=== PATIENT | male | born 1965 | race African-American/Black ===

== ENCOUNTER → 2018-12-31 | Outpatient (CLI) | payer OTHER | LOC: COL.RAD 06:44 | DX: N04.1 Nephrotic syndrome with focal and segmental glomerular lesions (principal); N17.8 Other acute kidney failure; R90.82 White matter disease, unspecified | CPT/HCPCS: G0365 ==

== ENCOUNTER 2021-06-26 13:30 | Inpatient (IN) | payer OTHER ==
[~2021-06-26] VITALS: Ht 185.4 cm; Wt 104.8 kg
[2021-06-26 13:45] VITALS: BP 170/94; PULSE 92; TEMP 98.5
[2021-06-26] MEDS ORDERED: NORVASC 10MG10 MG PO (14:07)
[2021-06-26] MEDS ORDERED: CYCLOSPORINE100 M2 PO (14:07)
[2021-06-26] MEDS ORDERED: ZESTRIL 10MG10 MG PO (14:08)
[2021-06-26] MEDS ORDERED: VELTASSA8.4 GM PO (14:09)
[2021-06-26] MEDS ORDERED: VIAGRA50 M1 PO (14:10)
--- NOTE | 2021-06-26 14:16 | NUR ---
ADMISSION INTAKE AND ASSESSMENT COMPLETED. PT ORIENTED TO ROOM, ALL QUESTIONS ANSWERS. UPDATED PT ON PLAN OF CARE. LEFT A VOICEMAIL WITH AIMEE TO NOTIFY HER THAT PT IS HERE. PT DENIES ANY NEEDS AT THIS TIME. WILL CONTINUE TO MONITOR.
[2021-06-26 14:49] LABS: BASO % 0.6 % (0.0-2.0); EOS # 0.3 K/mm3 (0.0-0.7); GRAN # 4.6 K/mm3 (1.4-6.5); GRAN % 71.5 % (42.2-75.2); LYMPH # 0.7 K/mm3 (1.2-3.4); LYMPH % 11.2 % (20.0-51.0); MEAN CELL VOLUME 81 fl (80.0-100.0); MEAN CORPUSCULAR HGB CONC 32 g/dl (33.0-37.0); MEAN PLATELET VOLUME 9.7 fl (7.4-10.4); MONO # 0.7 K/mm3 (0.1-0.6); MONO % 11.2 % (1.7-9.3); PLATELET COUNT 292 K/mm3 (130-400); REDCELL DISTRIBUTION WIDTH-CV 13.3 % (11.5-14.5)
[2021-06-26 14:50] LABS: HEMATOCRIT 27.4 % (42.0-52.0); HEMOGLOBIN 8.8 g/dl (13.5-18.0); MEAN CORPUSCULAR HEMOGLOBIN 26 pg (27-31)
[2021-06-26 15:01] LABS: ALBUMIN 3.1 gm/dL (3.5-5.0); BILIRUBIN,TOTAL 0.5 mg/dL (0.2-1.2); CALCIUM 6.4 mg/dL (8.4-10.2); CREATININE, serum 21.91 mg/dL (0.72-1.25); POTASSIUM 4.3 mmol/L (3.5-4.5); TOTAL PROTEIN 6.8 gm/dL (6.2-8.1)
[2021-06-26 16:05] VITALS: BP 151/79; PULSE 92; TEMP 98.1
[2021-06-26 17:11] LABS: MUCOUS Present (NOT PRESENT); PH 5 (5-8); SQUAMOUS EPITHELIAL 0-2 /hpf (0-10); URINE APPEARANCE Hazy (CLEAR/HAZY); URINE BACTERIA Rare /hpf (NONE SEEN); URINE BILIRUBIN Negative (NEGATIVE); URINE BLOOD 2+ (NEGATIVE); URINE COLOR Yellow (YELLOW); URINE GLUCOSE Negative (NEGATIVE); URINE KETONE Trace (NEGATIVE); URINE LEUKOCYTE ESTERASE Negative (NEGATIVE); URINE NITRATE Negative (NEGATIVE); URINE PROTEIN(semi-quant) 3+ (NEGATIVE); URINE RBC 0-2 /hpf (0-2); URINE UROBILINOGEN Negative (NEGATIVE)
[2021-06-26 17:22] LABS: COLLECTION METHOD CLEAN CATCH
[2021-06-26 19:07] LABS: PHOSPHOROUS 9.9 mg/dL (2.3-4.7); URIC ACID 13.7 mg/dL (3.5-7.2)
[2021-06-26 20:11] VITALS: BP 152/88; PULSE 95; TEMP 98.5
--- NOTE | 2021-06-26 23:08 | NUR ---
PATIENT ALERT AND ORIENTED. C/O MODERATE PAIN 10/30 BUT REFUSED TYLENOL WHEN OFFERED. OFFERED ICE AND THIS WAS ALSO REFUSED. R KNEE SWOLLEN, NO REDNESS NOTED. R FA FISTULA +BRUIT AND THRILL. RESTRICT BRACELET IN PLACE. HS MEDICATIONS GIVEN. DENIES ANY OTHER NEEDS.
[2021-06-26 23:49] VITALS: BP 137/89; PULSE 100; TEMP 98.5
[2021-06-27] VITALS (8 sets, daily range): BP systolic 94–171; BP diastolic 52–97; PULSE 95–100; TEMP 97.5–98.8
--- NOTE | 2021-06-27 07:30 | NUR ---
PT PLEASANT, REPORTS PAIN 7/10 IN R KNEE, KNEE EDEMETOUS BUT NOT RED, PT ASSESSMENT PERFORMED, MEDICATIONS GIVEN, TYLENOL GIVEN FOR PAIN, EDUCATED PT ON 1130 TIME FOR DIALYSIS AND TO ORDER AN EARLY LUNCH, PT AOX4, NO OTHER NEEDS
--- NOTE | 2021-06-27 09:01 | NUR ---
BP ELEVATED, PCT REASSESSED BP, NOW NOT WITHIN PARAMETERS TO GIVE HYDRALAZINE, [facility] NOTIFIED TO ADDRESS BP MEDICATIONS.
--- NOTE | 2021-06-27 11:29 | NUR ---
general warehouse worker met with patient to discuss discharge plan. Patient currently lives at home in [place]. He is independent with his ADL's and utilizes a cane prn to help with ambulation. Patient has no oxygen needs at home. PCP is Etta Vera APRN and he utilizes [facility] in for medications. Patient does not have a DPOA-HC established. Geovanni ([phone]) is the mother of his 4 children but they were never legally . His oldest child is a daughter named Johana ([phone]). Patient is planning on returning home once medically ready. Patient reports that he does have [facility] insurance through his employer. [facility] Aysha Sparrow notified and sent an email to team. Discharge plan: Home
--- NOTE | 2021-06-27 11:37 | NUR ---
MEDICATIONS GIVEN, LIDOCAINE CREAM APPLIED TO FISTULA SITE AND COVERED WITH TEGADERM PER ORDER, PT REPORTS PAIN IN R KNEE AT 6/10
--- NOTE | 2021-06-27 12:59 | NUR ---
first visit from the social security benefits interviewer. NO needs right now.
--- NOTE | 2021-06-27 13:00 | NUR ---
PT REPORTS THAT ABOUT 30 MIN PRIOR HE WAS GOING TO THE BATHROOM INDEPENDENTLY, HE REPORTS HIS LEG "LOCKED UP AND I STARTED SEEING BLACK". STARTED YELLING "HELP" TO ASSIST PT BACK TO BED. VITALS OBTAINED AND STABLE. PT DENIES DIZZINESS AT REST.
--- NOTE | 2021-06-27 13:33 | NUR ---
PT TAKEN TO DIALYSIS VIA WHEELCHAIR
--- NOTE | 2021-06-27 14:56 | NUR ---
ATTEMPTED CANNULATION @ [facility] & UNSUCCESSFUL FOR HD TX INITIATION TODAY. DR. SAWYER NOTIFIED & ORDERED NPO AFTER MIDNIGHT FOR DIALYSIS CATHETER PLACEMENT ON RIGHT SIDE OF CHEST TOMORROW MORNING.
[2021-06-27 15:02] LABS: BASO # 0.1 K/mm3 (0.0-0.2); BASO % 0.7 % (0.0-2.0); EOS # 0.5 K/mm3 (0.0-0.7); EOS % 6.9 % (0.0-4.0); GRAN # 4.8 K/mm3 (1.4-6.5); GRAN % 71.2 % (42.2-75.2); LYMPH # 0.7 K/mm3 (1.2-3.4); LYMPH % 10.2 % (20.0-51.0); MEAN CELL VOLUME 80 fl (80.0-100.0); MEAN CORPUSCULAR HGB CONC 33 g/dl (33.0-37.0); MEAN PLATELET VOLUME 10.3 fl (7.4-10.4); MONO # 0.7 K/mm3 (0.1-0.6); MONO % 10.6 % (1.7-9.3); PLATELET COUNT 314 K/mm3 (130-400); RED BLOOD COUNT 3.46 M/mm3 (4.20-5.60); REDCELL DISTRIBUTION WIDTH-CV 13.2 % (11.5-14.5)
[2021-06-27 15:05] LABS: ALBUMIN 2.9 gm/dL (3.5-5.0); CREATININE, serum 20.37 mg/dL (0.72-1.25); PHOSPHOROUS 9.3 mg/dL (2.3-4.7); POTASSIUM 3.7 mmol/L (3.5-4.5)
[2021-06-27 15:14] LABS: HEMATOCRIT 27.5 % (42.0-52.0); HEMOGLOBIN 9.1 g/dl (13.5-18.0); MEAN CORPUSCULAR HEMOGLOBIN 26 pg (27-31)
--- NOTE | 2021-06-27 15:20 | NUR ---
CRITICAL CO2 CALLED TO [facility], SHE ALSO STATED PT WOULD BE NPO MDN
[2021-06-27 15:26] LABS: INR 1.2 (0.8-3.0); PROTHROMBIN TIME 13.5 SECONDS (9.7-12.8)
[2021-06-27 17:16] LABS: HEPATITIS B SURFACE ANTIBODY <2.0 (()); HEPATITIS B SURFACE ANTIGEN Negative (Negative); HEPATITIS C VIRUS ANTIBODY Negative (Negative)
--- NOTE | 2021-06-27 17:41 | NUR ---
pt mitzi, aox4, will be npo mdn for tdc placement tomorrow, reports pain in r knee, no other needs
[2021-06-28] VITALS (14 sets, daily range): BP systolic 91–137; BP diastolic 50–87; PULSE 88–97; TEMP 97.3–98.6
--- NOTE | 2021-06-28 05:00 | NUR ---
ASSESSMENT COMPLETE FOR THIS SHIFT. PT RESTING IN BED TALKING TO HIS MOTHER ON THE PHONE. PT COMPLAINED OF RT KNEE PAIN THAT HE SAID TYLENOL DIDN'T RELIEVE. PHYSICIAN CALLED. PERCOCET ORDERED AND GIVEN TO PT FOR PAIN. PT STATED PERCOCET HELPED TO RELIEVED HIS PAIN. PT DENIED PALPITATIONS, N,V,D, SOB OR DIZZINESS. PT NPO AT MIDNIGHT. PT EXPRESSED NO OTHER NEEDS AT THIS TIME. CALL LIGHT WITHIN REACH.
[2021-06-28 06:28] LABS: BASO % 0.4 % (0.0-2.0); EOS # 0.4 K/mm3 (0.0-0.7); EOS % 9.1 % (0.0-4.0); GRAN # 2.8 K/mm3 (1.4-6.5); GRAN % 58.7 % (42.2-75.2); LYMPH # 0.8 K/mm3 (1.2-3.4); LYMPH % 17.5 % (20.0-51.0); MEAN CELL VOLUME 80 fl (80.0-100.0); MEAN CORPUSCULAR HGB CONC 33 g/dl (33.0-37.0); MEAN PLATELET VOLUME 9.8 fl (7.4-10.4); MONO # 0.7 K/mm3 (0.1-0.6); MONO % 13.9 % (1.7-9.3); PLATELET COUNT 292 K/mm3 (130-400); RED BLOOD COUNT 3.22 M/mm3 (4.20-5.60); REDCELL DISTRIBUTION WIDTH-CV 13.2 % (11.5-14.5)
[2021-06-28 06:35] LABS: HEMATOCRIT 25.6 % (42.0-52.0); HEMOGLOBIN 8.5 g/dl (13.5-18.0); MEAN CORPUSCULAR HEMOGLOBIN 26 pg (27-31)
[2021-06-28 06:42] LABS: ALBUMIN 2.6 gm/dL (3.5-5.0); CREATININE, serum 20.47 mg/dL (0.72-1.25); PHOSPHOROUS 10.2 mg/dL (2.3-4.7)
[2021-06-28 06:44] LABS: CALCIUM 5.7 mg/dL (8.4-10.2)
--- NOTE | 2021-06-28 08:30 | NUR ---
PT ALERT AND ORIENTED UPON ENTRY. REGULAR HR AND RHYTHM. CLEAR RESPIRATIONS. BRUIT HEARD AND THRILL PRESENT ON RIGHT AV FISTULA. EDEMA NOTED IN RIGHT KNEE. PT COMPLAINED OF 7/10 KNEE PAIN THAT WOULD SOON WORSEN WHEN HE GOT OOB. PRN PERCACET ADMINISTERED. PAIN REASSESSED 1 HOUR LATER AND PT RATED IT 3/10. NO FURTHER ACTIONS TAKEN. ADMINISTERED PT MEDICATIONS AND EDUCATED ON MEDICATION PURPOSES. PT REMAINS NPO UNTIL HEMODIALYSIS CATHETER PLACEMENT.REVIEWED PROCEDURE CONSENT WITH CLIENT AND WITNESSED PT SIGNATURE. NO CONCERNS AT THIS TIME.
--- NOTE | 2021-06-28 12:00 | NUR ---
PT TAKEN OFF UNIT FOR DIALYSIS CATHETER PLACEMENT AND DIALYSIS.
--- NOTE | 2021-06-28 12:03 | NUR ---
PATIENT ALERT AND ORIENTED AND VERBALIZES UNDERSTANDING PROCEDCURE. PATIENT HAS CHRONIC RIGHT KNEE PAIN-NOT NEW TO THIS ADMISSION. SEE MERGE FOR ALL VITALS, MONITORING AND REPORT WELL MEDICATION ADMINISTRATION.
--- NOTE | 2021-06-28 15:05 | NUR ---
PATIENT TOLERATED HIS 1ST HD TX WITH NO FLUID REMOVAL. NEXT PLANNED HD TX TOMORROW AFTERNOON, Sunday06/29/21 @ NOON.
--- NOTE | 2021-06-28 15:30 | NUR ---
PT ATE FOOD THAT FAMILY MEMBER BROUGHT IN AFTER DIALYSIS.
--- NOTE | 2021-06-28 18:00 | NUR ---
PT ALERT AND RESTING IN BED. REPORTS MINOR PAIN AT HEMODIALYSIS CATHETER SITE. SITE DRESSING APPEARS CLEAN, DRY, AND INTACT. NO ERRYTHEMA OR DRAINAGE NOTED. PT COMPLETED 1 ROUND OF HEMODIALYSIS TODAY. VITAL SIGNS REMAIN WNL AFTER DIALYSIS. PT PHOSPHATE REMAINS ELEVATED. DR. SAWYER PUT IN ORDER FOR CALCIUM ACETATE 3 PILLS NOW AND 3 PILLS WITH EACH MEAL. PT DOES NOT COMPLAIN OF RIGHT KNEE PAIN AT THIS TIME. PERCOCET PRN ADMINISTERED X1 DURING THE SHIFT. PT REPORTED PAIN IMPROVEMENT. NO CONCERNS AT THIS TIME.
--- NOTE | 2021-06-28 22:12 | NUR ---
Patient sitting up in bed, awake, and A/Ox4. Patient reports right knee pain 10/30. PRN Percocet provided. All scheduled meds given per JUN. Right upper chest dialysis catheter site dressing C/D/I. VS stable. Call light in reach. Will continue to monitor.
[2021-06-29 03:31] VITALS: BP 110/69; PULSE 91; TEMP 97.8
[2021-06-29 06:26] LABS: BASO % 0.6 % (0.0-2.0); EOS # 0.4 K/mm3 (0.0-0.7); EOS % 8.3 % (0.0-4.0); GRAN # 2.9 K/mm3 (1.4-6.5); GRAN % 60.3 % (42.2-75.2); LYMPH # 0.8 K/mm3 (1.2-3.4); LYMPH % 15.8 % (20.0-51.0); MEAN CELL VOLUME 82 fl (80.0-100.0); MEAN CORPUSCULAR HGB CONC 32 g/dl (33.0-37.0); MEAN PLATELET VOLUME 9.9 fl (7.4-10.4); MONO # 0.7 K/mm3 (0.1-0.6); MONO % 14.6 % (1.7-9.3); PLATELET COUNT 314 K/mm3 (130-400); RED BLOOD COUNT 3.45 M/mm3 (4.20-5.60); REDCELL DISTRIBUTION WIDTH-CV 13.5 % (11.5-14.5)
[2021-06-29 06:49] LABS: HEMATOCRIT 28.4 % (42.0-52.0); MEAN CORPUSCULAR HEMOGLOBIN 26 pg (27-31)
[2021-06-29 07:05] LABS: ALBUMIN 2.7 gm/dL (3.5-5.0); CALCIUM 6.6 mg/dL (8.4-10.2); CREATININE, serum 15.45 mg/dL (0.72-1.25); PHOSPHOROUS 7.3 mg/dL (2.3-4.7); POTASSIUM 3.8 mmol/L (3.5-4.5)
--- NOTE | 2021-06-29 08:30 | NUR ---
PT TAKEN OFF UNIT FOR DIALYSIS
[2021-06-29 08:40] VITALS: BP 137/74; PULSE 99; TEMP 98.9
[2021-06-29] MEDS ORDERED: PERCOCET 325 MG1 TA2 PO (10:14)
[2021-06-29] MEDS ORDERED: PHOSLO667 MG PO (10:16)
[2021-06-29] MEDS ORDERED: PREDNISONE10 MG PO (10:18)
[2021-06-29] MEDS ORDERED: ZYLOPRIM 100MG100 MG PO (10:19)
[2021-06-29 10:54] VITALS: BP 140/85; PULSE 105; TEMP 98.9
--- NOTE | 2021-06-29 11:01 | NUR ---
PT RETURNED FROM DIALYSIS TO ROOM
--- NOTE | 2021-06-29 11:04 | NUR ---
PT WAS AWAKE AND RESTING UPON ENTRY THIS MORNING. REPORTS 2/10 PAIN IN RIGHT KNEE. DENIES PAIN AT HD CATHETER SITE. CATHETER DRESSING CLEAN AND DRY NO ERRYTHEMA NOTED. PT TAKEN TO DIALYSIS AND RETURNED. DIALYSIS NURSE REPORTS THAT PT DID "OKAY" AND NO FLUID WAS PULLED. HR REMAINS IN HIGH 90'S. SPOKE TO ORTHO THIS A.M THEY PLAN TO SEE PT AROUND NOON FOR STEROID SHOT INTO THE RIGHT KNEE. PT REFUSED BREAKFAST THIS MORNING SO THE CALCIUM ACETATE WAS HELD. WILL CONTINUE TO MONITOR VITALS POST DIALYSIS. NO CONERNS AT THIS TIME.
[2021-06-29 11:23] VITALS: BP 144/84
--- NOTE | 2021-06-29 12:48 | NUR ---
PT REFUSING TO ORDER/EAT LUNCH. ENCOURAGED FOOD AND PT STILL REFUSES. UNABLE TO ADMINISTER PHOSLO.
--- NOTE | 2021-06-29 14:08 | NUR ---
[facility]EE [facility] NOTIFIED OF KNEE INJECTION, XRAY AND COVID TEST COMPLETION FOR DISCHARGE ORDERS
--- NOTE | 2021-06-29 15:04 | NUR ---
PT notified [facility] that they would recommend a FWW for the patient. [facility] met with the patient to address the FWW. The patient is interested in getting a FWW and would like to utilize going through his insurance. He is agreeable with getting the FWW from [facility]. Dr. Mclean and МАРИНА Olivia are gone for the day and unable to sign the script. Ne contacted the patient's RN and asked if she could sign the script tomorrow. [facility]RIS contacted and faxed and emailed the FWW order to Daphne at [facility]. Daphne reports that they are okay with getting the script tomorrow. She states that their canal driver will not be able to deliver the FWW until later and asked if the patient would want to come and pick it up. [facility]IS updated the patient. The patient and his friend plan to go pick the FWW up at [facility] after they leave the hospital today. [facility]RIS updated Dpahne. No additional needs at this time.
--- NOTE | 2021-06-29 15:08 | NUR ---
1045 PATIENT TOLERATED HIS 2ND HD TX WITH NO FLUID REMOVAL TODAY. NEXT PLANNED HD TX @ [facility] IN [place] TOMORROW @ 6:30 AM Sunday06/30/21.
--- NOTE | 2021-06-29 15:30 | NUR ---
DISCHARGE EDUCATION PROVIDED TO PT, PT DENIES QUESTIONS ABOUT DISCHARGE, AWARE OF 2HR DELAY TO DIALYSIS APPT FOR INCELEMENT WEATHER, IV REMOVED, WALKER PROVIDED TO PT, ESCORTED OUT VIA WHEELCHAIR, NO OTHER NEEDS.
--- NOTE | 2021-06-30 10:28 | NUR ---
Patients signed order and clinical documentation for his walker faxed to [facility].
== END 2021-06-29 15:30 | disposition home or self-care (01) | DRG 673 ==
LOC: MEDICAL 13:30
PROVIDERS: Registered Nurse; ADMIT Internal Medicine Nephrology
PROC: 0JH63XZ Insertion of Tunneled Vascular Access Device into Chest Subcutaneous Tissue and Fascia, Percutaneous Approach (ICD-10-PCS; principal; 2021-06-29)
PROC: 05HM33Z Insertion of Infusion Device into Right Internal Jugular Vein, Percutaneous Approach (ICD-10-PCS; 2021-06-29)
PROC: 5A1D70Z Performance of Urinary Filtration, Intermittent, Less than 6 Hours Per Day (ICD-10-PCS; 2021-06-29)
DX: I12.0 Hypertensive chronic kidney disease with stage 5 chronic kidney disease or end stage renal disease (principal); N18.6 End stage renal disease; E87.2 Acidosis; E66.9 Obesity, unspecified; M19.90 Unspecified osteoarthritis, unspecified site; M62.08 Separation of muscle (nontraumatic), other site; N28.1 Cyst of kidney, acquired; M10.9 Gout, unspecified; I16.0 Hypertensive urgency; E83.51 Hypocalcemia; E87.5 Hyperkalemia; D63.1 Anemia in chronic kidney disease; R94.31 Abnormal electrocardiogram [ECG] [EKG]; E83.39 Other disorders of phosphorus metabolism; Z68.30 Body mass index [BMI] 30.0-30.9, adult; Z23 Encounter for immunization
CPT/HCPCS: J1644; J1756; J2250; J3010; J7030; J7512; Q5105

== ENCOUNTER 2021-08-31 10:30 | Outpatient (CLI) | payer OTHER ==
[2021-08-31] VITALS (9 sets, daily range): BP systolic 109–125; BP diastolic 50–83; PULSE 66–79; TEMP 98.1
[~2021-08-31] VITALS: Ht 185.5 cm; Wt 110.0 kg
[~2021-08-31 10:30] MED LIST: CYCLOSPORINE100 M2 PO; NORVASC 10MG10 MG PO; PERCOCET 325 MG1 TA2 PO; PHOSLO667 MG PO; PREDNISONE10 MG PO; VELTASSA8.4 GM PO; VIAGRA50 M1 PO; ZESTRIL 10MG10 MG PO; ZYLOPRIM 100MG100 MG PO
--- NOTE | 2021-08-31 12:27 | NUR ---
See merge for all medication, assessment, intervention, and vital sign times.
--- NOTE | 2021-08-31 13:35 | NUR ---
pt returned from label pinker via bed to eu 10. awake and alert, has bandaid to right lower arm that is clean and dry with no swelling, in room, takes applesauce and sprite, watches tv
--- NOTE | 2021-08-31 14:20 | NUR ---
report to Aubrie ARMENTA, no changes
--- NOTE | 2021-08-31 15:00 | NUR ---
Received recovery information on pt at this time from GEOVANY Alfred
== END 2021-09-05 12:31 ==
LOC: COL.CAR 10:30
DX: T82.858A Stenosis of other vascular prosthetic devices, implants and grafts, initial encounter (principal); N18.6 End stage renal disease; Z99.2 Dependence on renal dialysis
CPT/HCPCS: C1725; C1769; J1644; J2250; J3010; Q9967